=== PATIENT | male | born 1990 | race African-American/Black ===

== ENCOUNTER 2016-03-23 09:00 | Emergency (ER) | payer OTHER ==
[~2016-03-23] VITALS: Ht 172.7 cm; Wt 117.0 kg
[~2016-03-23 09:00] MED LIST: EC-N500T7 PO; Z.0.NO CURRENT MEDS
--- NOTE | 2016-03-23 09:54 | RADRPT ---
EXAM DATE/TIME: 03/23/2016 09:28 [facility] COMPARISON: CHEST SINGLE AP, December 09, 2011, 23:39. INDICATIONS : Chest pain when taking in a deep breath for 2 days. MEDICAL HISTORY : None. SURGICAL HISTORY : None. ENCOUNTER: Initial ACUITY: 2 days PAIN SCORE: 4/10 LOCATION: Bilateral chest FINDINGS: A single view of the chest demonstrates the lungs to be symmetrically aerated without evidence of mas s, infiltrate or effusion. The cardiomediastinal contours are unremarkable. Osseous structures are intact. CONCLUSION: Normal examination for a patient of this age. No significant change has occurred. Rasheed Harris MD on March 23, 2016 at 9:52 Board Certified Radiologist. This report was verified electronically.
[2016-03-23 10:03] LABS: AUTOMATED NEUTROPHIL # 3.4 TH/MM3 (1.8-7.7); BASOPHIL % 0.4 % (0.0-2.0); EOSINOPHIL # 0.2 TH/MM3 (0-0.4); EOSINOPHIL % 3.2 % (0.0-4.0); HEMATOCRIT 41.6 % (39.0-51.0); HEMO FLAGS DIFF FINAL; LYMPH % 31.9 % (9.0-44.0); LYMPHOCYTE # 1.8 TH/MM3 (1.0-4.8); MEAN CELL VOLUME 82.6 FL (80.0-100.0); MEAN CORPUSCULAR HGB CONC 33.9 % (32.0-36.0); MONO % 6.4 % (0.0-8.0); NEUT % 58.1 % (16.0-70.0); PLATELET COUNT 227 TH/MM3 (150-450); RED BLOOD COUNT 5.04 MIL/MM3 (4.50-5.90); RED CELL DISTRIBUTION WIDTH 13.8 % (11.6-17.2); WHITE BLOOD COUNT 5.8 TH/MM3 (4.0-11.0)
[2016-03-23 10:25] LABS: ANION GAP 8 MEQ/L (5-15); BICARBONATE 27.5 MEQ/L (21.0-32.0); BLOOD UREA NITROGEN 13 MG/DL (7-18); CHLORIDE 106 MEQ/L (98-107); GLOMERULAR FILTRATION RATE 85 ML/MIN (>89); POTASSIUM 3.8 MEQ/L (3.5-5.1); SODIUM (NA) 141 MEQ/L (136-145)
[2016-03-23 10:28] LABS: CREATINE KINASE 389 U/L (39-308)
[2016-03-23 10:41] LABS: CKMB 1.4 NG/ML (0.5-3.6)
[2016-03-23 11:20] VITALS: O2SAT 99
[2016-03-23 11:29] VITALS: BP 139/90; PULSE 73; RESP 18; TEMP 98.6; O2SAT 97
[2016-03-23] MEDS ORDERED: IBUP800T23 PO (11:34)
--- NOTE | 2016-03-23 11:34 | PD ---
HPI Chief Complaint: Chest Pain Time Seen by Provider: 11:30 Travel History International Travel<30 days: No Contact w/Intl Traveler<30days: No Traveled to known affect area: No History of Present Illness HPI 26-year-old male with no significant medical history, presents to emergency department for evaluation of a anterior chest pain elicited with deep inspiration. This has been over the last 2 days and is only with deep inspiration. Patient denies any other chest pain or shortness of breath. He states prior to this he did have upper respiratory infection with a nonproductive cough but this has also resolved. Denies any fever or chills. Denies any nausea, vomiting, diarrhea. No history of PE or DVT. Patient has no other symptoms to report. PFSH Past Medical History Medical History: Denies Significant Hx Social History Alcohol Use: No Tobacco Use: No Substance Use: No Allergies-Medications (Allergen,Severity, Reaction): Coded Allergies: No Known Allergies (Verified , 03/23/16) Reported Meds & Prescriptions Reported Meds & Active Scripts Active Ibuprofen 800 Mg Tab 800 Mg PO Q8H PRN Review of Systems Except as stated in HPI: all other systems reviewed are Neg Physical Exam Narrative GENERAL: Well-nourished, well-developed male patient, in no acute distress SKIN: Warm and dry. HEAD: Normocephalic. EYES: No scleral icterus. No injection or drainage. NECK: Supple, trachea midline. No JVD or lymphadenopathy. CARDIOVASCULAR: Regular rate and rhythm without murmurs, gallops, or rubs. RESPIRATORY: Breath sounds equal bilaterally. No accessory muscle use. GASTROINTESTINAL: Abdomen soft, non-tender, nondistended. MUSCULOSKELETAL: No cyanosis, or edema. BACK: Nontender without obvious deformity. No CVA tenderness. Data Data Last Documented VS Vital Signs Date Time Temp Pulse Resp B/P Pulse Ox O2 Delivery O2 Flow Rate FiO2 03/23/16 11:29 98.6 73 18 139/90 97 03/23/16 11:20 Room Air Orders Electrocardiogram (03/23/16 09:12) Complete Blood Count With Diff (03/23/16 09:12) Basic Metabolic Panel (Bmp) (03/23/16 09:12) Ckmb (Isoenzyme) Profile (03/23/16 09:12) Troponin I (03/23/16 09:12) Chest, Single Ap (03/23/16 09:12) Iv Access Insert/Monitor (03/23/16 09:12) Ecg Monitoring (03/23/16 09:12) Oxygen Administration (03/23/16 09:12) Oximetry (03/23/16 09:12) CKMB (03/23/16 09:57) CKMB% (03/23/16 09:57) Labs Laboratory Tests Test 03/23/16 09:57 White Blood Count 5.8 TH/MM3 Red Blood Count 5.04 MIL/MM3 Hemoglobin 14.1 GM/DL Hematocrit 41.6 % Mean Corpuscular Volume 82.6 FL Mean Corpuscular Hemoglobin 28.0 PG Mean Corpuscular Hemoglobin 33.9 % Concent Red Cell Distribution Width 13.8 % Platelet Count 227 TH/MM3 Mean Platelet Volume 9.0 FL Neutrophils (%) (Auto) 58.1 % Lymphocytes (%) (Auto) 31.9 % Monocytes (%) (Auto) 6.4 % Eosinophils (%) (Auto) 3.2 % Basophils (%) (Auto) 0.4 % Neutrophils # (Auto) 3.4 TH/MM3 Lymphocytes # (Auto) 1.8 TH/MM3 Monocytes # (Auto) 0.4 TH/MM3 Eosinophils # (Auto) 0.2 TH/MM3 Basophils # (Auto) 0.0 TH/MM3 CBC Comment DIFF FINAL Differential Comment Sodium Level 141 MEQ/L Potassium Level 3.8 MEQ/L Chloride Level 106 MEQ/L Carbon Dioxide Level 27.5 MEQ/L Anion Gap 8 MEQ/L Blood Urea Nitrogen 13 MG/DL Creatinine 1.25 MG/DL Estimat Glomerular Filtration 85 ML/MIN Rate Random Glucose 122 MG/DL Calcium Level 8.5 MG/DL Total Creatine Kinase 389 U/L Creatine Kinase MB 1.4 NG/ML Creatine Kinase MB % 0.4 % Troponin I LESS THAN 0.02 NG/ML MDM Medical Decision Making Medical Screen Exam Complete: Yes Emergency Medical Condition: Yes Medical Record Reviewed: Yes Differential Diagnosis Pleurisy versus costochondritis versus URI versus chest wall pain versus less likely PE Narrative Course 26-year-old male presents versus permanent for evaluation of chest pain on deep inspiration. Patient appears well and without distress. Workup was initiated in triage. Lab work is without acute concern. Vital signs are stable. Troponins less than 0.02. Total CK is 389. Chest x-ray is normal for a person of this age. Based on Wells criteria, low probability of PE. Patient will be discharged home with diagnosis of costochondritis. He is instructed to follow-up with primary care provider and return immediately with any acute worsening of symptoms. Diagnosis Primary Impression: Acute costochondritis Referrals: Primary Care Physician Patient Instructions: Costochondritis (ED), General Instructions Additional Instructions: Follow-up with her primary care provider Return immediately to the emergency department for evaluation Med/Other Pt SpecificInfo: Prescription(s) given Scripts Ibuprofen 800 Mg [id number] Mg PO Q8H PRN (Pain/Inflammation) #30 TAB Ref 0 Prov:Elinor Arias 03/23/16 Disposition: 01 DISCHARGE HOME Condition: Stable Elinor Arias Mar 23, 2016 11:34
--- NOTE | 2016-03-23 12:24 | EKG ---
Date Performed: 03/23/2016 Time Performed: 09:25:52 PTAGE: 26 years EKG: Sinus rhythm ABNORMAL ECG PREVIOUS TRACING : 12/10/2011 00.01 DOCTOR: Rory Stewart Interpretating Date/Time 03/23/2016 12:21:02
== END 2016-03-23 11:41 | disposition home or self-care (01) ==
LOC: NETRI 09:00
DX: M94.0 Chondrocostal junction syndrome [Tietze] (principal); R94.31 Abnormal electrocardiogram [ECG] [EKG]
CPT/HCPCS: 71010; 80048; 82550; 82552; 84484; 85025; 93005

== ENCOUNTER 2017-07-03 14:43 | Emergency (ER) | payer BC, OTHER ==
[~2017-07-03] VITALS: Ht 172.7 cm; Wt 118.2 kg
[~2017-07-03 14:43] MED LIST changes: -EC-N500T7 PO; +IBUP1TAB7 PO; -Z.0.NO CURRENT MEDS
[2017-07-03 14:47] VITALS: BP 174/88; PULSE 77; RESP 18; TEMP 98.5; O2SAT 99
[2017-07-03 14:55] VITALS: BP 173/115; PULSE 74; RESP 18; TEMP 98.5; O2SAT 98
--- NOTE | 2017-07-03 14:57 | PD ---
HPI Chief Complaint: Chest Pain Time Seen by Provider: 14:55 Travel History International Travel<30 days: No Contact w/Intl Traveler<30days: No Traveled to known affect area: No History of Present Illness HPI 27-year-old male presents to the emergency department with complaint of chest pain over the sternum 1 week. Chest pain comes and goes and he says he does not have chest pain at this time. Says he went to the gym last week and noticed the pain afterwards. Otherwise denies injury. Has had chest pain like this in the past and is similar with past symptoms. denies shortness of breath. Denies recent illness. Denies hemoptysis, recent travel, recent surgery, leg edema, history of DVT/PE. Denies having a stress test in the past. Denies cardiac history. Denies family history of early heart disease. Denies illicit drug use. Denies tobacco use. Says the pain is not related pain but more like a "soreness." Is worse in the morning and after he relaxes for a while. It gets better throughout the day and with activity. No pain at this time. Not taking any medications or try any treatments to alleviate his symptoms. He has an appointment with his primary care provider on July 26, Dr. Moy. No known allergies. Denies significant past medical history. Has no other medical complaints. No other modifying factors or associated signs and symptoms. [facility] Social History Alcohol Use: No Tobacco Use: No Substance Use: No Allergies-Medications (Allergen,Severity, Reaction): Coded Allergies: No Known Allergies (Verified Adverse Reaction, Unknown, 07/03/17) Reported Meds & Prescriptions Reported Meds & Active Scripts Active No Active Prescriptions or Reported Medications Review of Systems Except as stated in HPI: all other systems reviewed are Neg Physical Exam Narrative GENERAL: Well-nourished, well-developed black male patient, in no acute distress SKIN: Warm and dry. HEAD: Atraumatic. Normocephalic. EYES: Pupils equal and round. No scleral icterus. No injection or drainage. ENT: Mucosa pink and moist. NECK: Trachea midline. CHEST: Reproducible chest wall tenderness over the sternum; no crepitance or deformity. No retractions or use of accessory muscles. CARDIOVASCULAR: Regular rate and rhythm. No murmur appreciated. RESPIRATORY: No accessory muscle use. Clear to auscultation. Breath sounds equal bilaterally. No retractions or tachypnea. GASTROINTESTINAL: Abdomen soft, non-tender, nondistended. Hepatic and splenic margins not palpable. Bowel sounds are active 4 quadrants. MUSCULOSKELETAL: No obvious deformities. No clubbing. No cyanosis. No edema. NEUROLOGICAL: Awake and alert. Oriented 3. No obvious cranial nerve deficits. Motor grossly within normal limits. Normal speech. Moves all extremities. 5/5 strength to all extremities. PSYCHIATRIC: Appropriate mood and affect; insight and judgment normal. Data Data Last Documented VS Vital Signs Date Time Temp Pulse Resp B/P (MAP) Pulse Ox O2 Delivery O2 Flow Rate FiO2 07/03/17 20:44 07/03/17 19:18 66 18 100 Room Air 07/03/17 14:55 98.5 Orders Orders Electrocardiogram (07/03/17 14:57) Chest, Pa & Lat (07/03/17 14:57) Basic Metabolic Panel (Bmp) (07/03/17 15:22) Ckmb (Isoenzyme) Profile (07/03/17 15:22) Complete Blood Count With Diff (07/03/17 15:22) Magnesium (Mg) (07/03/17 15:22) Prothrombin Time / Inr (Pt) (07/03/17 15:22) Act Partial Throm Time (Ptt) (07/03/17 15:22) Troponin I (07/03/17 15:22) Iv Access Insert/Monitor (07/03/17 15:22) Sodium Chloride 0.9% Flush (Ns Flush) (07/03/17 15:30) CKMB (07/03/17 16:14) CKMB% (07/03/17 16:14) Troponin I (07/03/17 19:16) Ed Discharge Order (07/03/17 20:33) Labs Laboratory Tests Test 07/03/17 16:14 07/03/17 19:15 White Blood Count 4.8 TH/MM3 Red Blood Count 5.08 MIL/MM3 Hemoglobin 14.4 GM/DL Hematocrit 42.3 % Mean Corpuscular Volume 83.3 FL Mean Corpuscular Hemoglobin 28.3 PG Mean Corpuscular Hemoglobin Concent 34.0 % Red Cell Distribution Width 14.3 % Platelet Count 221 TH/MM3 Mean Platelet Volume 9.6 FL Neutrophils (%) (Auto) 50.5 % Lymphocytes (%) (Auto) 38.1 % Monocytes (%) (Auto) 8.3 % Eosinophils (%) (Auto) 2.6 % Basophils (%) (Auto) 0.5 % Neutrophils # (Auto) 2.4 TH/MM3 Lymphocytes # (Auto) 1.8 TH/MM3 Monocytes # (Auto) 0.4 TH/MM3 Eosinophils # (Auto) 0.1 TH/MM3 Basophils # (Auto) 0.0 TH/MM3 CBC Comment DIFF FINAL Differential Comment Prothrombin Time 11.4 SEC Prothromb Time International Ratio 1.1 RATIO Activated Partial Thromboplast Time 28.2 SEC Blood Urea Nitrogen 9 MG/DL Creatinine 1.15 MG/DL Random Glucose 99 MG/DL Calcium Level 9.1 MG/DL Magnesium Level 2.3 MG/DL Sodium Level 140 MEQ/L Potassium Level 4.0 MEQ/L Chloride Level 105 MEQ/L Carbon Dioxide Level 31.0 MEQ/L Anion Gap 4 MEQ/L Estimat Glomerular Filtration Rate 92 ML/MIN Total Creatine Kinase 428 U/L Creatine Kinase MB 2.2 NG/ML Creatine Kinase MB % 0.5 % Troponin I LESS THAN 0.02 NG/ML LESS THAN 0.02 NG/ML MDM Medical Decision Making Medical Screen Exam Complete: Yes Emergency Medical Condition: Yes Medical Record Reviewed: Yes Differential Diagnosis Chest wall strain, LA, ACS, chest wall pain, atypical chest pain Narrative Course 27-year-old male with chest pain. Reports noticing pain after going to the gym last week. EKG with sinus bradycardia and ST inversion, which is new in lead 1 and AvL from 03/23/2016; reviewed by Dr. Barrios. 1708: CBC unremarkalble. Total CK 428. Troponin less than 0.02. Coags unremarkable. 1749: BMP unremarkable. Repeat Trop ordered for 1914. 1899: Report given to Rasheed Love PA-C at change of shift. See his note for final patient disposition. Repeat troponin pending. Diagnosis Primary Impression: Chest pain Qualified Codes: R07.9 - Chest pain, unspecified Referrals: [facility] Senior Financial Analyst Primary Care Physician Patient Instructions: Chest Pain (ED), Chest Wall Pain (ED), General Instructions Additional Instructions: Ibuprofen or Tylenol as directed and as needed to reduce pain Heating pad and/or ice to affected area to reduce pain Avoid aggravating activities; increase activity as tolerated Follow-up with a primary care provider Return to the emergency department immediately with worsening of symptoms Med/Other Pt SpecificInfo: No Change to Meds, No Meds Exist/No RX given Scripts No Active Prescriptions or Reported Meds Disposition: 01 DISCHARGE HOME Condition: Stable Lupe Yan Jul 03, 2017 14:57
[2017-07-03] MEDS ORDERED: SODIUM CHLORIDE 0.9% FLUSH 10 ML FLUSH IVF PRN (15:30)
--- NOTE | 2017-07-03 15:56 | RADRPT ---
EXAM DATE/TIME: 07/03/2017 15:30 [facility] COMPARISON: CHEST SINGLE AP, March 23, 2016, 9:28. INDICATIONS : Chest discomfort for several days, no shortness of breath MEDICAL HISTORY : None. SURGICAL HISTORY : None. ENCOUNTER: Initial ACUITY: 4 - 6 days PAIN SCORE: 5/10 LOCATION: Bilateral chest FINDINGS: PA and lateral views of the chest demonstrate the lungs to be symmetrically aerated without evidence of mass, infiltrate or effusion. The cardiomediastinal contours are unremarkable. Osseous structure s are intact. CONCLUSION: 1. No acute cardiopulmonary disease. Eliu Coulter MD on July 03, 2017 at 15:54 Board Certified Radiologist. This report was verified electronically.
[2017-07-03 16:42] LABS: AUTOMATED NEUTROPHIL # 2.4 TH/MM3 (1.8-7.7); BASOPHIL % 0.5 % (0.0-2.0); EOSINOPHIL # 0.1 TH/MM3 (0-0.4); EOSINOPHIL % 2.6 % (0.0-4.0); HEMATOCRIT 42.3 % (39.0-51.0); HEMOGLOBIN 14.4 GM/DL (13.0-17.0); LYMPH % 38.1 % (9.0-44.0); LYMPHOCYTE # 1.8 TH/MM3 (1.0-4.8); MEAN CELL VOLUME 83.3 FL (80.0-100.0); MEAN CORPUSCULAR HEMOGLOBIN 28.3 PG (27.0-34.0); MEAN PLATELET VOLUME 9.6 FL (7.0-11.0); MONO % 8.3 % (0.0-8.0); MONOCYTE # 0.4 TH/MM3 (0-0.9); NEUT % 50.5 % (16.0-70.0); PLATELET COUNT 221 TH/MM3 (150-450); RED BLOOD COUNT 5.08 MIL/MM3 (4.50-5.90); RED CELL DISTRIBUTION WIDTH 14.3 % (11.6-17.2); WHITE BLOOD COUNT 4.8 TH/MM3 (4.0-11.0)
[2017-07-03 16:53] LABS: INTERNATIONAL NORMALIZED RATIO 1.1 RATIO; PROTHROMBIN TIME - PATIENT 11.4 SEC (9.8-11.6)
[2017-07-03 17:00] LABS: BLOOD UREA NITROGEN 9 MG/DL (7-18); CALCIUM 9.1 MG/DL (8.5-10.1); CHLORIDE 105 MEQ/L (98-107); CREATININE 1.15 MG/DL (0.60-1.30); GLOMERULAR FILTRATION RATE 92 ML/MIN (>89); GLUCOSE,RANDOM 99 MG/DL (74-106); MAGNESIUM 2.3 MG/DL (1.5-2.5); SODIUM (NA) 140 MEQ/L (136-145)
[2017-07-03 17:04] LABS: TROPONIN I LESS THAN 0.02 NG/ML (0.02-0.05)
[2017-07-03 19:18] VITALS: BP 186/105; PULSE 66; RESP 18; O2SAT 100
--- NOTE | 2017-07-03 20:38 | PD ---
Physical Exam Date Seen by Provider: Jul 03, 2017 Time Seen by Provider: 20:36 Data Data Last Documented VS Vital Signs Date Time Temp Pulse Resp B/P (MAP) Pulse Ox O2 Delivery O2 Flow Rate FiO2 07/03/17 19:18 66 18 186/105 (132) 100 Room Air 07/03/17 14:55 98.5 Orders Orders Electrocardiogram (07/03/17 14:57) Chest, Pa & Lat (07/03/17 14:57) Basic Metabolic Panel (Bmp) (07/03/17 15:22) Ckmb (Isoenzyme) Profile (07/03/17 15:22) Complete Blood Count With Diff (07/03/17 15:22) Magnesium (Mg) (07/03/17 15:22) Prothrombin Time / Inr (Pt) (07/03/17 15:22) Act Partial Throm Time (Ptt) (07/03/17 15:22) Troponin I (07/03/17 15:22) Iv Access Insert/Monitor (07/03/17 15:22) Sodium Chloride 0.9% Flush (Ns Flush) (07/03/17 15:30) CKMB (07/03/17 16:14) CKMB% (07/03/17 16:14) Troponin I (07/03/17 19:16) Ed Discharge Order (07/03/17 20:33) Labs Laboratory Tests Test 07/03/17 16:14 07/03/17 19:15 White Blood Count 4.8 TH/MM3 Red Blood Count 5.08 MIL/MM3 Hemoglobin 14.4 GM/DL Hematocrit 42.3 % Mean Corpuscular Volume 83.3 FL Mean Corpuscular Hemoglobin 28.3 PG Mean Corpuscular Hemoglobin Concent 34.0 % Red Cell Distribution Width 14.3 % Platelet Count 221 TH/MM3 Mean Platelet Volume 9.6 FL Neutrophils (%) (Auto) 50.5 % Lymphocytes (%) (Auto) 38.1 % Monocytes (%) (Auto) 8.3 % Eosinophils (%) (Auto) 2.6 % Basophils (%) (Auto) 0.5 % Neutrophils # (Auto) 2.4 TH/MM3 Lymphocytes # (Auto) 1.8 TH/MM3 Monocytes # (Auto) 0.4 TH/MM3 Eosinophils # (Auto) 0.1 TH/MM3 Basophils # (Auto) 0.0 TH/MM3 CBC Comment DIFF FINAL Differential Comment Prothrombin Time 11.4 SEC Prothromb Time International Ratio 1.1 RATIO Activated Partial Thromboplast Time 28.2 SEC Blood Urea Nitrogen 9 MG/DL Creatinine 1.15 MG/DL Random Glucose 99 MG/DL Calcium Level 9.1 MG/DL Magnesium Level 2.3 MG/DL Sodium Level 140 MEQ/L Potassium Level 4.0 MEQ/L Chloride Level 105 MEQ/L Carbon Dioxide Level 31.0 MEQ/L Anion Gap 4 MEQ/L Estimat Glomerular Filtration Rate 92 ML/MIN Total Creatine Kinase 428 U/L Creatine Kinase MB 2.2 NG/ML Creatine Kinase MB % 0.5 % Troponin I LESS THAN 0.02 NG/ML LESS THAN 0.02 NG/ML [facility] Medical Record Reviewed: Yes Supervised Visit with DILCIA: Yes Interpretation(s) Laboratory Tests Test 07/03/17 16:14 07/03/17 19:15 White Blood Count 4.8 TH/MM3 Red Blood Count 5.08 MIL/MM3 Hemoglobin 14.4 GM/DL Hematocrit 42.3 % Mean Corpuscular Volume 83.3 FL Mean Corpuscular Hemoglobin 28.3 PG Mean Corpuscular Hemoglobin Concent 34.0 % Red Cell Distribution Width 14.3 % Platelet Count 221 TH/MM3 Mean Platelet Volume 9.6 FL Neutrophils (%) (Auto) 50.5 % Lymphocytes (%) (Auto) 38.1 % Monocytes (%) (Auto) 8.3 % Eosinophils (%) (Auto) 2.6 % Basophils (%) (Auto) 0.5 % Neutrophils # (Auto) 2.4 TH/MM3 Lymphocytes # (Auto) 1.8 TH/MM3 Monocytes # (Auto) 0.4 TH/MM3 Eosinophils # (Auto) 0.1 TH/MM3 Basophils # (Auto) 0.0 TH/MM3 CBC Comment DIFF FINAL Differential Comment Prothrombin Time 11.4 SEC Prothromb Time International Ratio 1.1 RATIO Activated Partial Thromboplast Time 28.2 SEC Blood Urea Nitrogen 9 MG/DL Creatinine 1.15 MG/DL Random Glucose 99 MG/DL Calcium Level 9.1 MG/DL Magnesium Level 2.3 MG/DL Sodium Level 140 MEQ/L Potassium Level 4.0 MEQ/L Chloride Level 105 MEQ/L Carbon Dioxide Level 31.0 MEQ/L Anion Gap 4 MEQ/L Estimat Glomerular Filtration Rate 92 ML/MIN Total Creatine Kinase 428 U/L Creatine Kinase MB 2.2 NG/ML Creatine Kinase MB % 0.5 % Troponin I LESS THAN 0.02 NG/ML LESS THAN 0.02 NG/ML Differential Diagnosis . Narrative Course This is a 27-year-old male who is seen earlier this evening by Lupe Baker the nurse practitioner. She asked me to review his second troponin. If his second troponin was negative he would be stable for discharge. His second troponin is negative. Patient is made aware of the laboratory findings. He is also instructed to monitor his blood pressure and follow-up closely with a primary care doctor. Diagnosis Primary Impression: Chest pain Qualified Codes: R07.9 - Chest pain, unspecified Referrals: [facility] Supervisor [employer] Primary Care Physician Patient Instructions: General Instructions, Chest Pain (ED), Chest Wall Pain ( ED) Additional Instruction: Ibuprofen or Tylenol as directed and as needed to reduce pain Heating pad and/or ice to affected area to reduce pain Avoid aggravating activities; increase activity as tolerated Follow-up with a primary care provider Return to the emergency department immediately with worsening of symptoms Med/Other Pt SpecificInfo: No Meds Exist/No RX given Scripts No Active Prescriptions or Reported Meds Disposition: 01 DISCHARGE HOME Condition: Stable Rasheed Love Jul 03, 2017 20:38
--- NOTE | 2017-07-04 15:14 | EKG ---
Date Performed: 07/03/2017 Time Performed: 15:11:54 PTAGE: 27 years EKG: SINUS BRADYCARDIA ST DEVIATION AND MODERATE T-WAVE ABNORMALITY, CONSIDER LATERAL ISCHEMIA A BNORMAL ECG Since the PREVIOUS TRACING , no significant change noted PREVIOUS TRACIN03/23/2016 09.25 DOCTOR: Darrion Benoit Interpretating Date/Time 07/04/2017 15:12:15
== END 2017-07-03 20:54 | disposition home or self-care (01) ==
LOC: NEPD 14:43
DX: R07.89 Other chest pain (principal); R94.31 Abnormal electrocardiogram [ECG] [EKG]
CPT/HCPCS: 71046; 80048; 82550; 82552; 83735; 84484; 85025; 85610; 85730; 93005; 99285